=== PATIENT | female | born 1980 | race Caucasian/White ===

== ENCOUNTER 2022-08-28 04:34 | Day surgery (SDC) | payer OTHER ==
[2022-08-28] MEDS ORDERED: KETAMINE HCL 500 MG/10 ML VIAL ONE (07:45)
[2022-08-28 08:47] VITALS: TEMP 98
[2022-08-28 09:22] VITALS: BP 112/74; PULSE 59; RESP 16
== END 2022-08-28 09:45 | disposition home or self-care (01) ==
LOC: JASU-ENDO 04:34
PROVIDERS: ATTEND Student in an Organized Health Care Education/Training Program
PROC: 0DB78ZX Excision of Stomach, Pylorus, Via Natural or Artificial Opening Endoscopic, Diagnostic (ICD-10-PCS; 2022-08-28)
PROC: 0DB68ZX Excision of Stomach, Via Natural or Artificial Opening Endoscopic, Diagnostic (ICD-10-PCS; principal; 2022-08-28 08:00)
DX: K29.50 Unspecified chronic gastritis without bleeding (principal); K31.7 Polyp of stomach and duodenum
CPT/HCPCS: 81025; 88305-TC; 88342-TC